=== PATIENT | male | born 1990 | race Caucasian/White ===

== ENCOUNTER 2024-04-11 03:15 | Observation (INO) ==
[2024-04-11] MEDS ORDERED: IOPAMIDOL 100 ML BOTTLE IV ONE (03:16)
[2024-04-11] MEDS: ONDANSETRON 4 MG/2 ML VIAL IV ONE (03:47)
[2024-04-11] MEDS: fentaNYL 100 MCG/2 ML VIAL IV ONE ×2 (03:47→05:33)
[2024-04-11] MEDS: 0.9 % SODIUM CHLORIDE 1,000 ML IV ONE ×2 (03:48→05:57)
[2024-04-11 03:51] LABS: Basophils # (Auto) 0.03 K/mcL (0.00-0.30); Basophils % (Auto) 0.2 % (0.0-2.0); Eosinophils # (Auto) 0.05 K/mcL (0.00-0.70); Eosinophils % (Auto) 0.3 % (0.0-7.0); Hematocrit 39.3 % (40.1-51.0); Hemoglobin 12.5 g/dL (13.7-17.5); Lymphocytes # (Auto) 2.03 K/mcL (1.50-4.80); Lymphocytes % (Auto) 13.2 % (15.5-49.0); Mean Cell Volume 88.5 fL (80.0-100.0); Mean Corpuscular HGB Conc 31.8 g/dL (31.0-36.0); Mean Platelet Volume 9.8 fL (8.8-12.5); Monocytes # (Auto) 1.51 K/mcL (0.10-0.90); Monocytes % (Auto) 9.8 % (1.0-12.0); Neutrophils % (Auto) 76.4 % (38.0-78.0); Platelet Count 373 K/mcL (140-440); RBC 4.44 M/mcL (4.63-6.08); WBC 15.4 K/mcL (4.5-11.0)
[2024-04-11 04:12] LABS: ALT/SGPT 15 U/L (<40); AST/SGOT 26 U/L (<40); Albumin 4.2 gm/dL (3.2-5.2); Albumin/Globulin Ratio 1.4 (1.0-2.3); Alkaline Phosphatase 62 U/L (39-117); Bilirubin,Total 0.8 mg/dL (0.1-1.0); Blood Urea Nitrogen 17 mg/dL (6-20); Calcium 10.4 mg/dL (8.6-10.4); Carbon Dioxide 19 mmol/L (22-30); Chloride 104 mmol/L (96-108); Glomerular Filtration Rate 78; Glucose 127 mg/dL (70-105); Potassium 4.8 mmol/L (3.3-5.1); Sodium 140 mmol/L (133-145)
[2024-04-11] MEDS ORDERED: ONDANSETRON 4 MG/2 ML VIAL IV PRN ×3 (05:41→12:18)
[2024-04-11] MEDS: PIPERACILLIN SODIUM/TAZOBACTAM 3.375 GM in DEXTROSE 5% IN WATER 50 ML IV ONE (06:00)
[2024-04-11] MEDS: PIPERACILLIN SODIUM/TAZOBACTAM 3.375 GM in DEXTROSE 5% IN WATER 100 ML IV SCH (06:00)
[2024-04-11 06:33] LABS: Prothrombin Time 13.1 sec (11.9-14.5)
[2024-04-11] MEDS: 0.9 % SODIUM CHLORIDE 1,000 ML IV SCH (07:00)
[2024-04-11] MEDS: HYDROmorphone 1 MG/ML SYRINGE IV PRN (07:25)
[2024-04-11] MEDS: fentaNYL 100 MCG/2 ML VIAL IV PRN (09:21)
[2024-04-11] MEDS ORDERED: PROPOFOL 200 MG/20 ML VIAL IV ONE (11:17)
[2024-04-11] MEDS ORDERED: SUGAMMADEX SODIUM 200 MG/2 ML VIAL IV ONE (11:17)
[2024-04-11] MEDS ORDERED: fentaNYL 100 MCG/2 ML VIAL ONE ×2 (11:17→12:42)
[2024-04-11] MEDS ORDERED: ROCURONIUM 10 MG/ML ML IV ONE (11:19)
[2024-04-11] MEDS ORDERED: GLYCOPYRROLATE 0.2 MG/ML VIAL IV ONE (11:19)
[2024-04-11] MEDS ORDERED: DEXAMETHASONE 10 MG/ML VIAL ONE (11:19)
[2024-04-11] MEDS ORDERED: LIDOCAINE 2% PF 5 ML VIAL ONE (11:19)
[2024-04-11] MEDS ORDERED: ONDANSETRON 4 MG/2 ML VIAL ONE (11:19)
[2024-04-11] MEDS ORDERED: PHENYLephrine 1 MG/10 ML SYRINGE (ANEST) ONE (12:17)
[2024-04-11] MEDS ORDERED: HYDROmorphone 0.5 MG/0.5 ML SYRINGE IV PRN (12:18)
[2024-04-11] MEDS ORDERED: fentaNYL 100 MCG/2 ML VIAL IV PRN (12:18)
[2024-04-11] MEDS ORDERED: CARBOXYMETHYLCELLULOSE SODIUM 1 EACH DROPER.GEL ONE (12:27)
[2024-04-11] MEDS ORDERED: oxyCODONE IR 5 MG TABLET PO PRN (12:42)
[2024-04-11] MEDS: LACTATED RINGERS 1,000 ML IV SCH (13:18)
[2024-04-11] MEDS ORDERED: [UNRECOGNIZED DRUG - OTHER] TOPICAL SCH (14:00)
[2024-04-11] MEDS: PIPERACILLIN SODIUM/TAZOBACTAM 3.375 GM in 0.9 % SODIUM CHLORIDE 100 ML IV SCH (14:32)
[2024-04-11 15:44] LABS: Appearance,Urine Clear (Clear); Bilirubin,Urine Negative (Negative); Color,Urine Yellow; Glucose,Urine (UA) Negative (Negative); Ketones,Urine 15 mg/dL (Negative); Leukocyte Esterase,Urine Negative /uL (Negative); Nitrate,Urine Negative (Negative); PH,Urine 5.5 (5.0-9.0); Protein,Urine Negative (Negative); Specific Gravity,Urine 1.015 (1.000-1.035); Urine Blood Negative ery/mcL (Negative); Urobilinogen,Urine Normal
[2024-04-11] MEDS: MYCOPHENOLIC ACID 360 MG PO SCH (20:39)
[2024-04-11] MEDS: TACROLIMUS 1 MG CAPSULE PO SCH (20:39)
[2024-04-11] MEDS: predniSONE 5 MG TABLET PO SCH (20:39)
[2024-04-11] MEDS: TRIAMCINOLONE CREAM 0.1% 15G 1 DOSE TUBE TOPICAL SCH (20:39)
[2024-04-12] MEDS ORDERED: predniSONE 5 MG TABLET PO SCH (09:00)
[2024-04-13 06:59] LABS: Basophils # (Auto) 0.01 K/mcL (0.00-0.30); Basophils % (Auto) 0.1 % (0.0-2.0); Eosinophils # (Auto) 0.02 K/mcL (0.00-0.70); Eosinophils % (Auto) 0.2 % (0.0-7.0); Hemoglobin 11.2 g/dL (13.7-17.5); Lymphocytes # (Auto) 1.88 K/mcL (1.50-4.80); Lymphocytes % (Auto) 15.5 % (15.5-49.0); Mean Corpuscular HGB Conc 31.1 g/dL (31.0-36.0); Mean Platelet Volume 10.6 fL (8.8-12.5); Monocytes # (Auto) 0.96 K/mcL (0.10-0.90); Monocytes % (Auto) 7.9 % (1.0-12.0); Neutrophils % (Auto) 76.1 % (38.0-78.0); Platelet Count 349 K/mcL (140-440); Red Cell Distribution Width 14.2 % (11.5-14.5); WBC 12.2 K/mcL (4.5-11.0)
[2024-04-13 07:26] LABS: ALT/SGPT 10 U/L (<40); AST/SGOT 14 U/L (<40); Albumin 3.6 gm/dL (3.2-5.2); Albumin/Globulin Ratio 1.4 (1.0-2.3); Alkaline Phosphatase 50 U/L (39-117); Bilirubin,Direct < 0.2 mg/dL (0-0.3); Bilirubin,Total 0.3 mg/dL (0.1-1.0); Blood Urea Nitrogen 25 mg/dL (6-20); Calcium 9.7 mg/dL (8.6-10.4); Carbon Dioxide 24 mmol/L (22-30); Chloride 105 mmol/L (96-108); Globulin 2.5 gm/dL (2.2-3.7); Glomerular Filtration Rate 78; Glucose 112 mg/dL (70-105); Lactate Dehydrogenase 141 U/L (135-225); Potassium 4.3 mmol/L (3.3-5.1); Sodium 141 mmol/L (133-145); Triglycerides 112 mg/dL (<150); Uric Acid 2.3 mg/dL (2.5-8.0)
== END 2024-04-13 17:45 | disposition home or self-care (01) ==
LOC: MEDSUR 03:15 → ED 03:15 → MEDSUR 06:40
PROVIDERS: ADMIT Family Medicine Adult Medicine; ATTEND Family Medicine Adult Medicine